=== PATIENT | male | born 1975 | race Caucasian/White ===

== ENCOUNTER → 2017-07-16 | Outpatient (CLI) | payer OTHER | END | disposition home or self-care (01) | LOC: KCIC MRI 13:01 | DX: M48.062 Spinal stenosis, lumbar region with neurogenic claudication (principal); Q76.49 Other congenital malformations of spine, not associated with scoliosis; M51.46 Schmorl's nodes, lumbar region; M51.36 Other intervertebral disc degeneration, lumbar region | CPT/HCPCS: 72148 ==

== ENCOUNTER → 2017-12-02 | Outpatient (CLI) | payer OTHER ==
[2017-12-02 16:01] LABS: ADD MAN DIFF? NO
[2017-12-02 16:13] LABS: BASO # 0.1 x10^3/uL (0.0-0.2); BASO % 1 % (0-3); EOS % 0 % (0-3); HEMATOCRIT 45.9 % (39.0-53.0); HEMOGLOBIN 15.8 g/dL (13.0-17.5); LYMPH % 19 % (24-48); MEAN CORPUSCULAR HEMOGLOBIN 31 pg (25-35); MEAN CORPUSCULAR HGB CONC 34 g/dL (31-37); MEAN CORPUSCULAR VOLUME 89 fL (79-100); MONO # 0.5 x10^3/uL (0.0-1.1); MONO % 5 % (0-9); NEUT # 7.8 x10^3uL (1.8-7.7); NEUT % 75 % (31-73); PLATELET COUNT 236 x10^3/uL (140-400); RED BLOOD COUNT 5.17 x10^6/uL (4.30-5.70); RED CELL DISTRIBUTION WIDTH 14.1 % (11.5-14.5); WHITE BLOOD COUNT 10.5 x10^3/uL (4.0-11.0)
[2017-12-02 16:47] LABS: ALBUMIN/GLOBULIN RATIO 1.3 (1.0-1.7); ALK PHOS 90 U/L (46-116); ALT (SGPT) 23 U/L (16-63); ANION GAP 9 (6-14); AST (SGOT) 15 U/L (15-37); BLOOD UREA NITROGEN 14 mg/dL (8-26); BUN/CREATININE RATIO 16 (6-20); CALCIUM 8.4 mg/dL (8.5-10.1); CARBON DIOXIDE 28 mmol/L (21-32); CHLORIDE 101 mmol/L (98-107); CREATININE 0.9 mg/dL (0.7-1.3); GFR 93.5; GLUCOSE 110 mg/dL (70-99); POTASSIUM 4.2 mmol/L (3.5-5.1); SODIUM 138 mmol/L (136-145); TOTAL BILIRUBIN 0.4 mg/dL (0.2-1.0); TOTAL PROTEIN 7.2 g/dL (6.4-8.2)
[2017-12-03 02:15] LABS: MRSA BY PCR Negative (Negative)
== END | disposition home or self-care (01) ==
LOC: SURGPAT 13:30
DX: Z01.812 Encounter for preprocedural laboratory examination (principal); M51.16 Intervertebral disc disorders with radiculopathy, lumbar region
CPT/HCPCS: 36415; 80053; 85025; 87641

== ENCOUNTER → 2017-12-12 | Day surgery (SDC) | payer OTHER ==
[~2017-12-12] MED LIST: DESFLURANE > 120 MINUTES IH; DEXAMETHASONE SOD PHOS 20 MG/5 ML VIAL.; KETOROLAC 30 MG/ML INJ FOR OR. INJ; MIDAZOLAM HCL/PF 2 MG/2 ML VIAL.; MORPHINE SULFATE 4 MG/ML DISP.SYRIN. IV; ONDANSETRON PF 4 MG/2 ML VIAL.; ONDANSETRON PF 4 MG/2 ML VIAL. IV; PHENYLEPHRINE 10 MG/ML VIAL.; PROCHLORPERAZINE 10 MG/2 ML VIAL. IV; PROPOFOL 20 ML IV; PROPOFOL 50 ML IV; REMIFENTANIL 2 MG VIAL. IV; ROCURONIUM 50 MG/5 ML VIAL.; fentaNYL PF VIAL 100 MCG/2 ML VIAL; fentaNYL PF VIAL 100 MCG/2 ML VIAL IV
[2017-12-12] MEDS: IV RINGERS,LACTATED 1000ML 1,000 ML IV (09:09)
[2017-12-12] MEDS: BACITRACIN 50,000 UNIT in IV NORMAL SALINE 1000ML BAG 1,000 ML IRR (12:01)
[2017-12-12] MEDS: KETOROLAC 60 MG/2 ML INJ FOR OR. (12:01)
[2017-12-12] MEDS: THROMBIN TOPICAL 20,000 UNIT SPRAY.SYRN KIT TP (12:01)
[2017-12-12] MEDS: BUPIVAC MPF-EPI 0.5%-1:200000 30 ML VIAL. INJ (12:01)
[2017-12-12] MEDS: GELATIN SPONGE SIZE 100. (12:01)
[2017-12-12] MEDS: LIDOCAINE 1% PF 2 ML VIAL. ID (13:44)
[2017-12-12] MEDS: fentaNYL PF VIAL 100 MCG/2 ML VIAL IV ×2 (13:55→14:15)
[2017-12-12] MEDS: HYDROcodone/APAP 7.5/325MG 1 TAB TABLET PO (14:35)
== END ==
LOC: SURG 08:31
DX: M51.16 Intervertebral disc disorders with radiculopathy, lumbar region (principal); M48.061 Spinal stenosis, lumbar region without neurogenic claudication; M51.26 Other intervertebral disc displacement, lumbar region; F41.9 Anxiety disorder, unspecified; Z98.890 Other specified postprocedural states; Z87.39 Personal history of other diseases of the musculoskeletal system and connective tissue; Z72.89 Other problems related to lifestyle; Z72.0 Tobacco use; Z88.4 Allergy status to anesthetic agent
CPT/HCPCS: 63030; 76000; 97162-GP; 97530-GP; A7015; G8978-CJ-GP; G8979-CJ-GP; G8980-CJ-GP; J0690; J1100; J1885; J2250; J2405; J2704; J3010; J3490; J7030

== ENCOUNTER → 2019-11-12 | Outpatient (CLI) | payer OTHER ==
[2017-12-12 15:25] VITALS: BP 125/78
[~2019-11-12] MED LIST changes: +CETI10CA PO; -DESFLURANE > 120 MINUTES IH; -DEXAMETHASONE SOD PHOS 20 MG/5 ML VIAL.; +DOCU-109 PO; +HYDR-2761 PO; +HYDR-2765 PO; +HYDR-3164 PO; +IBUP100O25 PO; -KETOROLAC 30 MG/ML INJ FOR OR. INJ; +METH-38 PO; -MIDAZOLAM HCL/PF 2 MG/2 ML VIAL.; -MORPHINE SULFATE 4 MG/ML DISP.SYRIN. IV; -ONDANSETRON PF 4 MG/2 ML VIAL.; -ONDANSETRON PF 4 MG/2 ML VIAL. IV; -PHENYLEPHRINE 10 MG/ML VIAL.; -PROCHLORPERAZINE 10 MG/2 ML VIAL. IV; -PROPOFOL 20 ML IV; -PROPOFOL 50 ML IV; -REMIFENTANIL 2 MG VIAL. IV; -ROCURONIUM 50 MG/5 ML VIAL.; -fentaNYL PF VIAL 100 MCG/2 ML VIAL; -fentaNYL PF VIAL 100 MCG/2 ML VIAL IV
== END | disposition home or self-care (01) ==
LOC: LAB 13:35
PROVIDERS: ATTEND Surgery
DX: Z01.818 Encounter for other preprocedural examination (principal); R22.9 Localized swelling, mass and lump, unspecified; Z20.828 Contact with and (suspected) exposure to other viral communicable diseases
CPT/HCPCS: 36415; 87635

== ENCOUNTER 2019-11-16 10:25 | Day surgery (SDC) | payer OTHER ==
[~2019-11-16] VITALS: Ht 147.3 cm; Wt 71.0 kg
[~2019-11-16 10:25] MED LIST changes: +HYDROmorphone 2 MG/ML VIAL IV PRN; +IV RINGERS,LACTATED 1000ML 1,000 ML IV SCH; +LIDOCAINE 1% PF 2 ML VIAL. ID PRN; +MORPHINE SULFATE 2 MG/ML VIAL. IV PRN; +ONDANSETRON PF 4 MG/2 ML VIAL. IV PRN; +PROCHLORPERAZINE 10 MG/2 ML VIAL. IV PRN; +fentaNYL PF VIAL 100 MCG/2 ML VIAL IV PRN
[2019-11-16] MEDS ORDERED: BUPIVACAINE-EPI 0.5%-1:200000 MPF 30 ML VIAL. INJ ONE (11:30)
[2019-11-16] MEDS ORDERED: LIDOCAINE 2% PF 5 ML VIAL. ONE (11:38)
[2019-11-16] MEDS ORDERED: PROPOFOL 20 ML IV ONE (11:38)
[2019-11-16] MEDS ORDERED: MIDAZOLAM HCL/PF 2 MG/2 ML VIAL. ONE (11:39)
[2019-11-16] MEDS ORDERED: PROPOFOL 10 MG/ML (20ML) VIAL. IV ONE (12:01)
[2019-11-16] MEDS ORDERED: DEXAMETHASONE SOD PHOS 4 MG/ML VIAL ONE (12:02)
[2019-11-16] MEDS ORDERED: SEVOFLURANE 31 TO 60 MINUTES. IH ONE (12:02)
[2019-11-16] MEDS ORDERED: ONDANSETRON PF 4 MG/2 ML VIAL. ONE (12:02)
--- NOTE | 2019-11-16 13:10 | DISCH ---
DISCHARGE INSTRUCTIONS Condition on Discharge Condition on Discharge: Stable Activity After Discharge Activity Instructions for Disc: Resume previous activity, Activity as tolerated Driving Instructions after Dis: Do not drive today Diet after Discharge Diet after Discharge: Regular Additional Diet Restrictions: resume home diet Wound Incision Care Wound/Incision Care: Ice to area for comfort Other wound/incision instructi: november Contacting the [facility] after DC Call your doctor for: Concerns you may have Follow-Up Follow up with: Raimundo end of the week for path report (office will call) FALLON COLLAZO MD November 16, 2019 13:10
--- NOTE | 2019-11-16 13:14 | PDOC ---
BRIEF OPERATIVE NOTE Date: November 16, 2019 Pre-Op Diagnosis subcutaneous mass, forehead skin lesion left neck subcutaneous mass, left proximal forearm Post-Op Diagnosis same Procedure Performed excision Surgeon Raimundo Nautical Instrument Mechanic Ileana GOOD Anesthesia Type: General (LMA) Blood Loss 5cc IV Fluid 800cc Specimens Obtained forehead 2.5x1.5x.0.5 cm left neck specimen size 2.5x1x1 cm, lesion size 1x0.5x0.3 cm left forearm 2x1x0.5 cm Findings fatty tumors forehead and left arm verrucal skin lesion neck Complications none FALLON COLLAZO MD November 16, 2019 13:14
[2019-11-16 13:15] VITALS: BP 132/81
--- NOTE | 2019-11-16 16:06 | OP ---
DATE OF SURGERY: 11/16/2019 PREOPERATIVE DIAGNOSES: Subcutaneous mass, forehead; skin lesion, left neck; subcutaneous mass, left proximal forearm. POSTOPERATIVE DIAGNOSES: Subcutaneous mass, forehead; skin lesion, left neck; subcutaneous mass, left proximal forearm. PROCEDURE: Excision of same. SPECIMENS: 1. Subcutaneous mass of the forehead, 2.5 x 1.5 x 0.5 cm. 2. Skin lesion of the neck. Specimen size 2.5 x 1 x 1 cm, lesion size 1 x 0.5 x 0.3 cm. 3. Subcutaneous mass, left proximal forearm, 2 x 1 x 0.5 cm. SURGEON: Nicolas Collazo MD DATABASE MANAGEMENT SYSTEM SPECIALIST: Ileana Holbrook. ANESTHESIA: General LMA. ESTIMATED BLOOD LOSS: 5 mL. INTRAVENOUS FLUIDS: 800 mL. DESCRIPTION OF PROCEDURE: The patient was brought to the operating suite, given a general LMA and the forehead and left neck were prepped and draped in usual sterile fashion. A 0.5% Marcaine with epinephrine was used to infiltrate around the mass on the forehead and neck, which had each been marked preoperatively with the patient's assistance. Incision was made on the forehead and the subcutaneous mass removed intact. Hemostasis with cautery. Wound closed with interrupted 3-0 Vicryl in the subcutaneous tissue and Dermabond. Left neck lesion infiltrated with local, excised and closed with interrupted 3-0 Vicryl and a subcuticular 4-0 Monocryl. Left arm was then prepped and draped and the proximal subcutaneous mass was excised en bloc and closed with interrupted 3-0 Vicryl and a subcuticular 4-0 Monocryl. Sterile dressings applied. The patient was awakened from his anesthetic and taken to the recovery room in satisfactory condition. NICOLAS COLLAZO MD DR: GEORGE/nicci JOB#: [id number] / [id number]
--- NOTE | 2019-11-18 08:06 | PATHOLOGY ---
[facility] Accession Number: [id number] . 01 Material submitted: . PART A: forehead - SUBCUTANEOUS MASS FOREHEAD PART B: neck - SKIN AND LESION LEFT NECK. Modifiers: left PART C: forearm - SUBCUTANEOUS MASS LEFT PROXIMAL FOREARM. Modifiers: left, proximal . 01 Clinical history: . Subcutaneous mass; skin and lesion x2 . 02 Diagnosis: A. Segment of fibroadipose and skeletal muscle tissue, forehead subcutaneous mass: - Lipoma. . B. Skin and subcutaneous tissue, left neck lesion excision: - Polypoid intradermal nevus, excised. . C. Segment of adipose tissue, left proximal forearm subcutaneous mass: - Angiolipoma. . (EMMAM:marita; 11/17/2019) [facility] 11/17/2019 1042 Local . 02 Comment: There is no evidence of malignancy. (AUSTIN:marita; 11/17/2019) . 02 Electronically signed: . Michele Webster MD, Pathologist NPI- [id number] . 01 Gross description: . A. The specimen is received in formalin, labeled "Pamlico, Jesus, subcutaneous mass forehead" and consists of a yellow-pink segment of tissue measuring 1.8 x 1.6 x 0.5 cm. It is inked black, serially sectioned, and entirely submitted in A1. . B. The specimen is received in formalin, labeled "Pamlico, Tad, L neck" and consists of an unoriented skin ellipse measuring 2.4 x 1.2 x 0.6 cm. The surface displays a pink mckoy nodule measuring 1.0 x 0.8 cm that is 0.3 cm from the nearest peripheral edge. The margin is inked black. It is serially sectioned and entirely submitted in B1-B3 with the tips in B3. . C. The specimen is received in formalin, labeled "Pamlico, Tad, subcutaneous mass left proximal forearm" and consists of a lobulated partially encapsulated segment of pink-yellow tissue measuring 2.1 x 1.1 x 0.6 cm. Sectioning is homogeneous pink-yellow cut surfaces and the specimen is entirely submitted in C1. (SDY; 11/16/2019) [facility] 11/17/2019 1039 Local . 02 Pathologist provided ICD-10: D17.0, D22.4, D17.22 . 02 CPT . 800636, 254776, [id number] Specimen Comment: A courtesy copy of this report has been sent to [phone], [phone] Specimen Comment: [id number] Specimen Comment: Report sent to / DR MOULTON Performed at: 01 [facility] [address], [place] [id number] MD Paul Parson MD Phone: [phone] Performed at: 02 [facility] [address], [place] [id number] MD Michele Webster MD Phone: [phone]
== END 2019-11-16 13:44 | disposition home or self-care (01) ==
LOC: SURG 10:25
PROVIDERS: ATTEND Surgery
DX: R22.0 Localized swelling, mass and lump, head (principal); D17.0 Benign lipomatous neoplasm of skin and subcutaneous tissue of head, face and neck; D22.4 Melanocytic nevi of scalp and neck; D17.22 Benign lipomatous neoplasm of skin and subcutaneous tissue of left arm; F41.9 Anxiety disorder, unspecified; E66.9 Obesity, unspecified; Z68.32 Body mass index [BMI] 32.0-32.9, adult; Z87.39 Personal history of other diseases of the musculoskeletal system and connective tissue; Z72.89 Other problems related to lifestyle
CPT/HCPCS: 11423; 21012; 25075; 88304; 88305; A7015; J1100; J1956; J2250; J2405; J2704; J3490

== ENCOUNTER 2020-01-26 09:00 | Emergency (ER) | payer OTHER ==
[~2020-01-26] VITALS: Ht 147.3 cm; Wt 69.0 kg
[~2020-01-26 09:00] MED LIST changes: -HYDROmorphone 2 MG/ML VIAL IV PRN; -IV RINGERS,LACTATED 1000ML 1,000 ML IV SCH; -LIDOCAINE 1% PF 2 ML VIAL. ID PRN; -MORPHINE SULFATE 2 MG/ML VIAL. IV PRN; -ONDANSETRON PF 4 MG/2 ML VIAL. IV PRN; -PROCHLORPERAZINE 10 MG/2 ML VIAL. IV PRN; -fentaNYL PF VIAL 100 MCG/2 ML VIAL IV PRN
[2020-01-26 09:15] VITALS: BP 169/98
--- NOTE | 2020-01-26 09:31 | PHYS DOC ---
General Adult EDM: Chief Complaint: fever HPI: HPI: Patient is a 44 year old male who came to ER today requesting COVID 19 test. He stated he started having fever and chill yesterday. His temperature was 101 degrees at home. Patient took some Tylenol before he came in here. Patient denies any nausea vomiting, no diarrhea, no abdominal pain, no cough, no trouble breathing, no sore throat. Patient complained of body ache, he feels like he has the flu. Patient denies being exposed to anybody who tested positive for COVID-19. Patient denies any history of diabetes. Patient denies any headache, no neck pain. Review of Systems: Review of Systems: Constitutional: Positive for fever or chills. [] Eyes: Denies change in visual acuity. [] HENT: Denies nasal congestion or sore throat. [] Respiratory: Denies cough or shortness of breath. [] Cardiovascular: Denies chest pain or edema. [] GI: Denies abdominal pain, nausea, vomiting, bloody stools or diarrhea. [] : Denies dysuria. [] Musculoskeletal: Denies back pain or joint pain. [] Integument: Denies rash. [] Neurologic: Denies headache, focal weakness or sensory changes. [] Endocrine: Denies polyuria or polydipsia. [] Lymphatic: Denies swollen glands. [] Psychiatric: Denies depression or anxiety. [] Heart Score: Risk Factors: Risk Factors: DM, Current or recent (<one month) smoker, HTN, HLP, family history of CAD, obesity. Risk Scores: Score 0 - 3: 2.5% MACE over next 6 weeks - Discharge Home Score 4 - 6: 20.3% MACE over next 6 weeks - Admit for Clinical Observation Score 7 - 10: 72.7% MACE over next 6 weeks - Early Invasive Strategies Allergies: Allergies: Allergies Coded Allergies Type Severity Reaction Last Updated Verified erythromycin base Allergy Intermediate Nausea and Vomiting 11/16/19 Yes Physical Exam: PE: Constitutional: Well developed, well nourished, no acute distress, non-toxic appearance. [] HENT: Normocephalic, atraumatic, bilateral external ears normal, oropharynx moist, no oral exudates, nose normal. [] Eyes: PERRLA, EOMI, conjunctiva normal, no discharge. [] Neck: Normal range of motion, no tenderness, supple, no stridor. [] Cardiovascular:Heart rate regular rhythm, no murmur [] Lungs & Thorax: Bilateral breath sounds clear to auscultation [] Abdomen: Bowel sounds normal, soft, no tenderness, no masses, no pulsatile masses. [] Skin: Warm, dry, no erythema, no rash. [] Back: No tenderness, no CVA tenderness. [] Extremities: No tenderness, no cyanosis, no clubbing, ROM intact, no edema. [] Neurologic: Alert and oriented X 3, normal motor function, normal sensory function, no focal deficits noted. [] Psychologic: Affect normal, judgement normal, mood normal. [] EKG: EKG: [] Radiology/Procedures: Radiology/Procedures: [] Course & Med Decision Making: Course & Med Decision Making Pertinent Labs and Imaging studies reviewed. (See chart for details) Patient is a 44-year-old male fever and chills, body aches and joint pain. We will test him for COVID-19, he will be discharged home, given instruction about COVID-19 infection with restriction and quarantine information. [employer] Disclaimer: [employer] Disclaimer: This electronic medical record was generated, in whole or in part, using a voice recognition dictation system. Departure Departure Impression: Primary Impression: Viral syndrome Disposition: 01 HOME, SELF-CARE Condition: STABLE Referrals: MIKALA MOULTON MD (PCP) please follow up with your doctor as needed Patient Instructions: Viral Syndrome Additional Instructions: You have been tested for or diagnosed with COVID-19. It is an infection caused by a new type of coronavirus. COVID-19 will cause cold-like or mild flu symptoms in most. It can cause more severe symptoms like problems breathing in some. There is no treatment for COVID-19. The body will clear the infection over time. Self-care will help to ease discomfort. Steps to Take: Self-Care Rest as needed. Healthy habits may help you feel better. Steps include: Choose healthy foods including fruits and vegetables. Drink water throughout the day. Get plenty of sleep each night. If you smoke, try to quit. It may ease breathing. Avoid alcohol. Keep Others Healthy The virus can spread to others. Droplets are released every time you sneeze or cough. The droplets can get into the mouth, nose, or eyes of people near you and lead to infection. To lower the chances of spreading COVID-19 to others: Stay at home until your doctor has said it is safe to leave. If you tested positive this will mean staying isolated until both of the following are true: At least 7 days have passed since the start of illness. You are free of fever for at least 72 hours without the use of medicine. During this time: - Avoid public areas, events, or transportation. Do not return to work or school until your doctor has said it is safe to do so. - Call ahead if you need to go to a medical center. Let them know you may have COVID-19. It will help them guide you where to go. They may also ask you to wear a facemask when you come to the office. - If you call for emergency medical services, let them know you may have COVID- 19. While at home: - Try to avoid close contact with others. Stay about 6 feet away. - If possible, spend most of your time in a separate room from others. - Use a face mask if you will be in close contact with others such as sharing a room or vehicle. - Have someone wipe down common surfaces in the home. Use household bundling machine operator every day on areas like doorknobs, counters, or sinks. - Cough or sneeze into a tissue. Throw the tissue away right after use. If a tissue is not available, cough or sneeze into your elbow. - Wash your hands often. Wash them after sneezing or coughing. Use soap and water and wash for at least 20 seconds. Alcohol based hand parts cleaner can be used if soap and water is not available. - Do not prepare food for others. Avoid sharing personal items like forks, spoons, or toothbrushes. - Avoid close contact with pets while you are sick. There is no evidence of the virus passing to pets. This is a safety step until more is known about this virus. Isolation can be frustrating. Social interaction can help. Keep in touch with friends and family through phone and tech options. You can still interact with others in your home, just keep a safe distance of about 6 feet. Follow-up: Your doctors office will check in with you to see if there are any changes in your health. You may be asked to keep track of symptoms to share with them. They will also let you know when you are clear to be in public again. Problems to Look Out For: Contact your doctor if your recovery is not going as you expect. Get emergency care if you have problems such as: - Trouble breathing - Nonstop chest pain or pressure - Changes in awareness, confusion, or problems waking - Lips or face have bluish color - Worsening of symptoms If you think you have an emergency, call for emergency medical services right away. As taken from [facility] Justicifation of Admission Dx: Justifications for Admission: Justification of Admission Dx: N/A OLGA PRASAD DO Jan 26, 2020 09:31
== END 2020-01-26 09:40 | disposition home or self-care (01) ==
LOC: ER 09:00
DX: B34.9 Viral infection, unspecified (principal); Z20.828 Contact with and (suspected) exposure to other viral communicable diseases; R50.9 Fever, unspecified; R52 Pain, unspecified; Z88.1 Allergy status to other antibiotic agents
CPT/HCPCS: 99283; U0003